=== PATIENT | male | born 1960 | race Caucasian/White ===

== ENCOUNTER 2017-12-03 09:55 | Outpatient (CLI) | payer OTHER | END 2017-12-03 17:00 | disposition home or self-care (01) | LOC: RAD 09:55 | DX: M12.9 Arthropathy, unspecified (principal); R13.10 Dysphagia, unspecified ==

== ENCOUNTER → 2021-01-16 | Outpatient (CLI) | payer OTHER | END | disposition home or self-care (01) | LOC: PPH VACUNA | DX: Z23 Encounter for immunization (principal) ==